=== PATIENT | male | born 1980 ===

== ENCOUNTER 2019-03-12 19:08 | Emergency (ER) | payer SELFPAY ==
--- OUTSIDE RECORDS SUMMARY | 2019-03-12 19:10 | XMS REPORT ---
:1980 [facility] Address [address] [place] [address] [place] [id number] Care Team Providers Name Role Phone Unavailable Unavailable Unavailable Problems This patient has no known problems. Allergies, Adverse Reactions, Alerts This patient has no known allergies or adverse reactions. Medications This patient has no known medications. Encounters Start End Encounter Admission Attending Care Care Encounter Date/Time Date/Time Type Type Clinicians Facility Department ID 2018-08-11 2018-08-11 Emergency E [id number] 08:16:00 08:16:00 2018-07-12 2018-07-12 Emergency E [id number] 10:02:00 10:02:00
--- OUTSIDE RECORDS SUMMARY | 2019-03-12 19:10 | XMS REPORT ---
:1980 Author Organization [employer] Care Team Providers Name Role Phone Logan Joséh Provider Role Unavailable Allergies, Adverse Reactions, Alerts Substance Reaction Event Type N.K.D.A. Info Not Available Non Drug Allergy Problems Problem Type Condition Code Onset Dates Condition Status Assessment Acute low back pain without M54.5 Active sciatica, unspecified back pain laterality Problem Tobacco use disorder F17.200 Active Assessment Return to work evaluation Z76.89 Active Assessment Tobacco use disorder F17.200 Active Medications No Known Medications Results No Known Results Summary Purpose eClinicalWorks Submission
[2019-03-12] MEDS ORDERED: NA CHLORIDE 0.9% 1,000 ML ONE (22:02)
[2019-03-12] MEDS ORDERED: ONDANSETRON 4 MG/2 ML VIAL ONE (22:02)
[2019-03-12 22:03] LABS: Absolute Lymphocytes (CBC) 2.3 K/uL (0.7-4.9); Hematocrit 45.6 % (39.6-49.0); MPV 7.7 fL (7.6-11.3); RBC Red Blood Cell Count 4.79 M/uL (4.33-5.43)
[2019-03-12 22:35] LABS: ALT/SGPT 32 U/L (12-78); AST/SGOT 16 U/L (15-37); Albumin 4.2 g/dL (3.4-5.0); Alkaline Phosphatase 38 U/L (45-117); BUN Blood Urea Nitrogen 14 mg/dL (7-18); Bicarbonate 29 mmol/L (21-32); Bilirubin Direct < 0.1 mg/dL (0-0.2); Bilirubin Total 0.2 mg/dL (0.2-1.0); Glucose Level 79 mg/dL (74-106); Lipase 73 U/L (73-393); Potassium 3.9 mmol/L (3.5-5.1); Protein, Total 7.6 g/dL (6.4-8.2); Sodium Level 140 mmol/L (136-145)
--- NOTE | 2019-03-12 22:49 | ER ---
Nurse's Notes [facility] Name: Freddy Zepeda Age: 38 yrs Sex: Male : 1980 Arrival Date: 03/12/2019 Time: 19:10 Bed 19 Private MD: Diagnosis: Diverticulitis of large intestine without perforation or abscess without bleeding Presentation: 03/12 20:01 Presenting complaint: Patient states: RLQ pain that radiates to the back x 4 days ago. ca1 Reports fever 100F, nausea. Denies vomiting and diarrhea. Denies urinary s/s. Transition of care: patient was not received from another setting of care. Onset of symptoms was March 09, 2019. Risk Assessment: Do you want to hurt yourself or someone else? Patient reports no desire to harm self or others. Initial Sepsis Screen: Does the patient meet any 2 criteria? No. Patient's initial sepsis screen is negative. Does the patient have a suspected source of infection? No. Patient's initial sepsis screen is negative. Care prior to arrival: None. 20:01 Method Of Arrival: Ambulatory ca1 20:01 Acuity: NEMO 3 ca1 Historical: - Allergies: 20:05 No Known Allergies; ca1 - Home Meds: 20:05 None [Active]; ca1 - PMHx: 20:05 None; ca1 - PSHx: 20:05 None; ca1 - Immunization history:: Adult Immunizations up to date, Flu vaccine is up to date. - Social history:: Smoking status: Patient uses tobacco products, smokes one-half pack cigarettes per day. - Ebola Screening: : Patient negative for fever greater than or equal to 101.5 degrees Fahrenheit, and additional compatible Ebola Virus Disease symptoms Patient denies exposure to infectious person Patient denies travel to an Ebola-affected area in the 21 days before illness onset No symptoms or risks identified at this time. Screenin:23 Abuse screen: Denies threats or abuse. Denies injuries from another. Nutritional wh screening: No deficits noted. Tuberculosis screening: No symptoms or risk factors identified. Fall Risk None identified. Assessment: 22:22 General: Appears in no apparent distress. Behavior is calm, cooperative, appropriate wh for age. Pain: Complains of pain in right upper quadrant and right lower quadrant Pain does not radiate. Pain currently is 6 out of 10 on a pain scale. Quality of pain is described as aching, Pain began 2-3 days ago. Neuro: Level of Consciousness is awake, alert, obeys commands, Oriented to person, place, time, situation, Appropriate for age. Cardiovascular: Heart tones S1 S2. Respiratory: Airway is patent Respiratory effort is even, unlabored, Respiratory pattern is regular, symmetrical, Breath sounds are clear bilaterally. GI: Abdomen is flat, non-distended, Bowel sounds present X 4 quads. Abd is soft and non tender X 4 quads. Reports lower abdominal pain, upper abdominal pain, nausea. : No signs and/or symptoms were reported regarding the genitourinary system. EENT: No signs and/or symptoms were reported regarding the EENT system. Derm: Skin is intact, is healthy with good turgor, Skin is pink, warm \T\ dry. normal. Musculoskeletal: Circulation, motion, and sensation intact. Vital Signs: 20:05 BP 115 / 80; Pulse 83; Resp 17 S; Temp 98.1(O); Pulse Ox 97% on R/A; Weight 78.34 kg ca1 (M); Height 6 ft. 1 in. (185.42 cm) (R); Pain 9/10; 22:23 BP 119 / 68; Pulse 63; Resp 18; Pulse Ox 99% on R/A; wh 20:05 Body Mass Index 22.78 (78.34 kg, 185.42 cm) ca1 ED Course: 19:10 Patient arrived in ED. jg7 20:04 Triage completed. ca1 20:05 Arm band placed on right wrist. ca1 20:58 Jose Luis Lucia MD is Attending Physician. kdr 21:30 Inserted saline lock: 22 gauge in right antecubital area, using aseptic technique. Blood collected. By Darryl Coleman RN. 21:34 Beatriz Bonilla is Primary Nurse. wh 22:13 CT Stone Protocol In Process Unspecified. EDMS 22:23 Patient has correct armband on for positive identification. Bed in low position. Call light in reach. Side rails up X 1. Pulse ox on. NIBP on. 23:08 No provider procedures requiring assistance completed. IV discontinued, intact, wh bleeding controlled, No redness/swelling at site. Administered Medications: 22:09 Drug: NS 0.9% 1000 ml Route: IV; Rate: 1 bolus; Site: right antecubital; 23:06 Follow up: Response: No adverse reaction; IV Status: Completed infusion 22:09 Drug: Zofran 4 mg Route: IVP; Site: right antecubital; 23:06 Follow up: Response: No adverse reaction; Nausea is decreased 23:00 Drug: TORadol - Ketorolac 15 mg Route: IVP; Site: right antecubital; 23:07 Follow up: Response: No adverse reaction; Pain is decreased 23:07 Drug: Flagyl 500 mg Route: PO; 23:08 Follow up: Response: No adverse reaction 23:07 Drug: Cipro 500 mg Route: PO; 23: Follow up: Response: No adverse reaction 23: Drug: Pepcid 20 mg Route: PO; 23: Follow up: Response: No adverse reaction Outcome: 22:49 Discharge ordered by . [facility] 23:09 Discharged to home ambulatory. 23:09 Condition: stable 23:09 Discharge instructions given to patient, Instructed on discharge instructions, follow up and referral plans. no drinking with medication, no driving heavy equipment, medication usage, POC Demonstrated understanding of instructions, follow-up care, medications, POC Prescriptions given X 4. 23:09 Patient left the ED. Signatures: Dispatcher [employer] EDMS Jose Luis Lucia MD MD kdr Habalo, Winsy Mandy Hensley RN RN ca1 Gutierrez, Jessica jg7
--- NOTE | 2019-03-12 22:49 | EDPHYS ---
Physician Documentation [facility] Name: Freddy Zepeda Age: 38 yrs Sex: Male : 1980 Arrival Date: 03/12/2019 Time: 19:10 Bed 19 Private MD: ED Physician Jose Luis Lucia HPI: 03/12 21:53 This 38 yrs old Black Male presents to ER via Ambulatory with complaints of Abdominal kdr Pain. 21:53 The patient presents with abdominal pain right lower quadrant, Right flank. Onset: The kdr symptoms/episode began/occurred gradually, 4 day(s) ago. The symptoms radiate to the right flank. Associated signs and symptoms: Pertinent positives: nausea, Pertinent negatives: anorexia, blood in stools, chest pain, constipation, diarrhea, dysuria, fever, headache, hematuria, palpitations, shortness of breath, testicular pain, vomiting, vomiting blood. The symptoms are described as achy, dull, vague. Modifying factors: The symptoms are alleviated by nothing, the symptoms are aggravated by movement. Severity of pain: At its worst the pain was mild moderate just prior to arrival, in the emergency department the pain is unchanged. The patient has not experienced similar symptoms in the past. The patient has not recently seen a physician. Historical: - Allergies: 20:05 No Known Allergies; ca1 - Home Meds: 20:05 None [Active]; ca1 - PMHx: 20:05 None; ca1 - PSHx: 20:05 None; ca1 - Immunization history:: Adult Immunizations up to date, Flu vaccine is up to date. - Social history:: Smoking status: Patient uses tobacco products, smokes one-half pack cigarettes per day. - Ebola Screening: : Patient negative for fever greater than or equal to 101.5 degrees Fahrenheit, and additional compatible Ebola Virus Disease symptoms Patient denies exposure to infectious person Patient denies travel to an Ebola-affected area in the 21 days before illness onset No symptoms or risks identified at this time. ROS: 21:53 Constitutional: Negative for fever, chills, and weight loss, Eyes: Negative for injury, kdr pain, redness, and discharge, Neck: Negative for injury, pain, and swelling, Cardiovascular: Negative for chest pain, palpitations, and edema, Respiratory: Negative for shortness of breath, cough, wheezing, and pleuritic chest pain, Back: Negative for injury and pain, : Negative for injury, bleeding, discharge, and swelling, MS/Extremity: Negative for injury and deformity, Skin: Negative for injury, rash, and discoloration, Neuro: Negative for headache, weakness, numbness, tingling, and seizure activity. Psych: Negative for depression, anxiety, suicide ideation, homicidal ideation, and hallucinations, Allergy/Immunology: Negative for hives, rash, and allergies, Endocrine: Negative for neck swelling, polydipsia, polyuria, polyphagia, and marked weight changes, Hematologic/Lymphatic: Negative for swollen nodes, abnormal bleeding, and unusual bruising. 21:53 Abdomen/GI: Positive for abdominal pain, nausea, Negative for vomiting, black/tarry stool, rectal pain, rectal bleeding, bowel incontinence. Exam: 21:56 Constitutional: This is a well developed, well nourished patient who is awake, alert, kdr and in no acute distress. Head/Face: Normocephalic, atraumatic. Eyes: Pupils equal round and reactive to light, extra-ocular motions intact. Lids and lashes normal. Conjunctiva and sclera are non-icteric and not injected. Cornea within normal limits. Periorbital areas with no swelling, redness, or edema. Neck: Trachea midline, no thyromegaly or masses palpated, and no cervical lymphadenopathy. Supple, full range of motion without nuchal rigidity, or vertebral point tenderness. No Meningismus. Chest/axilla: Normal chest wall appearance and motion. Nontender with no deformity. No lesions are appreciated. Cardiovascular: Regular rate and rhythm with a normal S1 and S2. No gallops, murmurs, or rubs. Normal PMI, no JVD. No pulse deficits. Respiratory: Lungs have equal breath sounds bilaterally, clear to auscultation and percussion. No rales, rhonchi or wheezes noted. No increased work of breathing, no retractions or nasal flaring. Skin: Warm, dry with normal turgor. Normal color with no rashes, no lesions, and no evidence of cellulitis. MS/ Extremity: Pulses equal, no cyanosis. Neurovascular intact. Full, normal range of motion. Neuro: Awake and alert, GCS 15, oriented to person, place, time, and situation. Cranial nerves II-XII grossly intact. Motor strength 5/5 in all extremities. Sensory grossly intact. Cerebellar exam normal. Normal gait. Psych: Awake, alert, with orientation to person, place and time. Behavior, mood, and affect are within normal limits. 21:56 Abdomen/GI: Inspection: abdomen appears normal, Bowel sounds: normal, active, Palpation: soft, mild abdominal tenderness, in the anterior aspect of right lateral abdomen, posterior aspect of right lateral abdomen and right lower quadrant, mass, is not appreciated, rebound tenderness, is not appreciated. Vital Signs: 20:05 BP 115 / 80; Pulse 83; Resp 17 S; Temp 98.1(O); Pulse Ox 97% on R/A; Weight 78.34 kg ca1 (M); Height 6 ft. 1 in. (185.42 cm) (R); Pain 9/10; 22:23 BP 119 / 68; Pulse 63; Resp 18; Pulse Ox 99% on R/A; wh 20:05 Body Mass Index 22.78 (78.34 kg, 185.42 cm) ca1 MDM: 21:56 Data reviewed: vital signs, nurses notes, lab test result(s), radiologic studies. kdr Counseling: I had a detailed discussion with the patient and/or guardian regarding: the historical points, exam findings, and any diagnostic results supporting the discharge/admit diagnosis, lab results, radiology results, the need for outpatient follow up. 22:49 Patient medically screened. [facility] 03/12 21:41 Order name: Basic Metabolic Panel; Complete Time: 22:46 [facility] 03/12 21:41 Order name: CBC with Diff; Complete Time: 22:46 [facility] 03/12 21:41 Order name: Creatinine for Radiology; Complete Time: 22:46 [facility] 03/12 21:41 Order name: Hepatic Function; Complete Time: 22:46 [facility] 03/12 21:41 Order name: Lipase; Complete Time: 22:46 [facility] 03/12 21:41 Order name: CT Stone Protocol [facility] 03/12 21:41 Order name: IV Saline Lock; Complete Time: 21:54 [facility] 03/12 21:41 Order name: Labs collected and sent; Complete Time: 21:55 kdr Administered Medications: 22:09 Drug: NS 0.9% 1000 ml Route: IV; Rate: 1 bolus; Site: right antecubital; 23:06 Follow up: Response: No adverse reaction; IV Status: Completed infusion 22:09 Drug: Zofran 4 mg Route: IVP; Site: right antecubital; 23:06 Follow up: Response: No adverse reaction; Nausea is decreased 23:00 Drug: TORadol - Ketorolac 15 mg Route: IVP; Site: right antecubital; 23:07 Follow up: Response: No adverse reaction; Pain is decreased 23:07 Drug: Flagyl 500 mg Route: PO; 23:08 Follow up: Response: No adverse reaction 23:07 Drug: Cipro 500 mg Route: PO; 23:07 Follow up: Response: No adverse reaction 23:07 Drug: Pepcid 20 mg Route: PO; 23:07 Follow up: Response: No adverse reaction Disposition: 03/12/19 22:49 Discharged to Home. Impression: Diverticulitis of large intestine without perforation or abscess without bleeding. - Condition is Stable. - Discharge Instructions: Diverticulitis. - Prescriptions for Flagyl 500 mg Oral Tablet - take 1 tablet by ORAL route every 8 hours for 10 days; 30 tablet. Zofran 4 mg Oral Tablet - take 1 tablet by ORAL route every 4-6 hours As needed; 12 tablet. Cipro 500 mg Oral Tablet - take 1 tablet by ORAL route every 12 hours for 10 days; 20 tablet. Tramadol 50 mg Oral Tablet - take 1 tablet by ORAL route every 8 hours as needed; 12 tablet. Pepcid 20 mg Oral Tablet - take 1 tablet by ORAL route once daily; 20 tablet. - Medication Reconciliation Form, Thank You Letter, Antibiotic Education, Prescription Opioid Use form. - Follow up: Private Physician; When: 2 - 3 days; Reason: If symptoms return, Further diagnostic work-up, Recheck today's complaints, Continuance of care, Re-evaluation by your physician. - Problem is new. - Symptoms have improved. Signatures: Dispatcher [employer] EDMS Jose Luis Lucia MD MD kdr Habalo, Winsy Mandy Hensley RN RN ca1 Corrections: (The following items were deleted from the chart) 23:09 22:49 03/12/2019 22:49 Discharged to Home. Impression: Diverticulitis of large wh intestine without perforation or abscess without bleeding. Condition is Stable. Forms are Medication Reconciliation Form, Thank You Letter, Antibiotic Education, Prescription Opioid Use. Follow up: Private Physician; When: 2 - 3 days; Reason: If symptoms return, Further diagnostic work-up, Recheck today's complaints, Continuance of care, Re-evaluation by your physician. Problem is new. Symptoms have improved. kdr
[2019-03-12] MEDS ORDERED: metroNIDAZOLE 500 MG TABLET ONE (23:00)
[2019-03-12] MEDS ORDERED: KETOROLAC 30 MG/ML INJ ONE (23:00)
[2019-03-12] MEDS ORDERED: CIPROFLOXACIN HCL 500 MG TAB ONE (23:00)
[2019-03-12] MEDS ORDERED: FAMOTIDINE 20 MG TAB ONE (23:01)
[2019-03-12 23:14] VITALS: TEMP 98.1
[2019-03-12 23:16] VITALS: BP 119/68; O2SAT 99
--- NOTE | 2019-03-15 11:39 | RAD REPORT ---
EXAM DESCRIPTION: CT - Stone Protocol - 03/13/2019 8:19 am CLINICAL HISTORY: The patient is 38 years old and is Male; Right flank pain TECHNIQUE: Axial computed tomography images of the abdomen and pelvis without intravenous contrast. Sagittal and coronal reformatted images were created and reviewed. This CT exam was performed usi ng one or more of the following dose reduction techniques: automated exposure control, adjustment o f the mA and/or kV according to patient size, and/or use of iterative reconstruction technique. DLP: 566 mGy*cm COMPARISON: None. FINDINGS: LUNG BASES: Lung bases are clear. HEART: The heart is normal in size. ABDOMEN: LIVER: Unremarkable. GALLBLADDER AND BILE DUCTS: Unremarkable. No calcified stones. No ductal dilation. PANCREAS: Unremarkable. No ductal dilation. SPLEEN: Unremarkable. No splenomegaly. ADRENALS: Unremarkable. No mass. KIDNEYS AND URETERS: Unremarkable. No obstructing stones. No hydronephrosis. STOMACH AND BOWEL: Advanced diffuse colonic diverticulosis with mild associated peridiverticular s tranding surrounding the ascending colon. No obstruction. No mucosal thickening. PELVIS: APPENDIX: The appendix is seen and is within normal limits. BLADDER: Bladder is decompressed. No stones. REPRODUCTIVE: Unremarkable as visualized. ABDOMEN and PELVIS: INTRAPERITONEAL SPACE: Unremarkable. No free air. No significant fluid collection. BONES/JOINTS: Thoracolumbar dextroscoliosis. No acute fracture. No dislocation. SOFT TISSUES: Unremarkable. VASCULATURE: Multiple pelvic phleboliths. No abdominal aortic aneurysm. LYMPH NODES: Unremarkable. No enlarged lymph nodes. IMPRESSION: 1. Diffuse colonic diverticulosis with suggested mild acute diverticulitis of the asce nding colon. 2. No obstructive uropathy. Electronically signed by: Jabari Salomon DO 03/12/2019 10:36 PM [facility] Due to temporary technical issues with the PACS/Fluency reporting system, reports are being signed by the in house radiologist as a courtesy to ensure prompt reporting. The interpreting radiologist is [email or web address] pena responsible for the content of the report.
== END 2019-03-12 23:09 | disposition home or self-care (01) ==
LOC: ER 19:08
DX: K57.32 Diverticulitis of large intestine without perforation or abscess without bleeding (principal); F17.210 Nicotine dependence, cigarettes, uncomplicated
CPT/HCPCS: 36415; 74176; 76377; 80048; 80076; 83690; 85025; 96361; 96374; 96375; 99284; J2405; J7030